=== PATIENT | female | born 1950 | race Caucasian/White ===

== ENCOUNTER → 2019-03-14 10:01 | Outpatient (CLI) | payer MEDICARE, SELFPAY ==
--- NOTE | 2019-03-14 10:06 | DI.RAD.S_ITS ---
PROCEDURE: XR LUMBAR SPINE 2-3V INDICATIONS: low back pain TECHNIQUE: 3 views of the lumbar spine were acquired. COMPARISON: None. FINDINGS: Bones: 5 [id number]-[id number] vertebrae are present. There is normal bony alignment. No vertebral body compression fractures. No suspicious bony lesions. Soft tissues: Overlying bowel gas pattern is normal. No suspicious soft tissue calcifications. IMPRESSION: Degenerative disc disease is mild to moderate in severity along the lumbosacral spine without subluxation. Facet osteoarthritis is minimal to the L4-5 level where is mild and moderate at L5-S1. Spinal and foraminal stenosis may be present at these 2 levels. Dictated by: Bakari Vegas M.D. on 03/14/2019 at 10:56 Approved by: Bakari Vegas M.D. on 03/14/2019 at 10:57
--- NOTE | 2019-03-14 10:06 | DI.RAD.S_ITS ---
PROCEDURE: XR SACRUM COCCYX MIN 2V INDICATIONS: low back pain TECHNIQUE: 3 views of the sacrum and coccyx acquired. COMPARISON: None. FINDINGS: Bones: No fractures or dislocations. No suspicious bony lesions. Soft tissues: Visualized bowel gas pattern is normal. No suspicious soft tissue densities. IMPRESSION: No trauma found. Source of low back pain involving the sacral region is not seen. Dictated by: Bakari Vegas M.D. on 03/14/2019 at 10:55 Approved by: Bakari Vegas M.D. on 03/14/2019 at 10:55
== END ==
PROVIDERS: PCP Physician Assistant; Visit Provider Physician Assistant
DX: M54.5 Low back pain (principal); M51.37 Other intervertebral disc degeneration, lumbosacral region; M47.817 Spondylosis without myelopathy or radiculopathy, lumbosacral region; G89.29 Other chronic pain
CPT/HCPCS: 72100; 72220

== ENCOUNTER → 2019-03-21 11:12 | Outpatient (CLI) | payer MEDICARE, SELFPAY ==
--- NOTE | 2019-03-21 | DI.MG.S_ITS ---
BILATERAL DIGITAL SCREENING MAMMOGRAM 3D/2D WITH CAD: 03/21/2019 CLINICAL: Routine screening. Baseline exam. No prior exams were available for comparison. There are scattered fibroglandular elements in both breasts. Current study was also evaluated with a Computer Aided Detection (CAD) system. There is an irregular equal density global asymmetry with an indistinct margin and segmental fine punctate calcifications in the right breast at 11 o'clock anterior depth. No other significant masses, calcifications, or other findings are seen in either breast. IMPRESSION: INCOMPLETE: NEEDS ADDITIONAL IMAGING EVALUATION The irregular equal density global asymmetry in the right breast is indeterminate. Mediolateral and spot magnification views as well as additional views with possible ultrasound are recommended. This exam was interpreted at Station ID: [id number]. NOTE: For mammograms, a report in lay terms will be sent to the patient. Approximately 15% of breast malignancies will not be visualized mammographically. In the management of a palpable breast mass, a negative mammogram must not discourage biopsy of a clinically suspicious lesion. Electronically Signed By: Jeffrey travis/karla:03/21/2019 16:36:12 letter sent: Additional Imaging Needed ACR BI-RADS Category 0: Incomplete 3340F
== END ==
PROVIDERS: PCP Physician Assistant; Visit Provider Physician Assistant
DX: Z12.31 Encounter for screening mammogram for malignant neoplasm of breast (principal)
CPT/HCPCS: 77063; 77067

== ENCOUNTER → 2019-04-04 17:03 | Outpatient (CLI) | payer MEDICARE, SELFPAY ==
--- NOTE | 2019-04-04 | DI.MRI.S_ITS ---
PROCEDURE: MR LUMBAR SPINE WO CON INDICATIONS: Lower back pain TECHNIQUE: Noncontrast sagittal T1 spin echo and T2 fast echo, sagittal STIR, axial T1 and T2 fast spin echo through the lumbar spine. In cases with scoliosis, additional coronal T2 fast spin echo may be performed. COMPARISON: [facility], CR, XR LUMBAR SPINE 2-3V, 03/14/2019, 10:21. [facility], CR, XR SACRUM COCCYX MIN 2V, 03/14/2019, 10:21. FINDINGS: Image quality: Diagnostic Alignment and Curvature: There is overall straightening of the normal lumbar lordosis. Bone Marrow: Marrow is of normal overall signal. No acute vertebral body compression fractures. Spinal Cord: Conus medullaris terminates at the L1-L2 level. Visualized cord demonstrates normal signal and size. Paraspinous Soft Tissues: No paravertebral masses. T12-L1: Normal appearance. L1-L2: Mild to moderate loss of disc height and disc signal are seen. No neural foraminal or central canal narrowing can be seen. L2-L3: Mild to moderate loss of disc height and disc signal can be seen. Mild generalized disc bulge is seen. There is mild to moderate left-sided and no right-sided neural foraminal narrowing seen. No significant central canal narrowing is seen. L3-L4: Mild to moderate loss of disc height and disc signal can be seen at this level. Mild to moderate disc bulge is seen. Yqdf-wj-wnhvutmv facet hypertrophy is seen. There is mild to moderate right-sided and no left-sided neural foraminal narrowing seen. Mild central canal narrowing is seen. L4-L5: Moderate loss of disc height is seen. Loss of disc signal is seen. Reactive marrow endplate changes are seen, which are hyperintense on T1-weighted and T2-weighted imaging and most consistent with fatty metaplasia (Modic type II changes). Moderate disc bulge is seen, which is eccentric to the right. There is a central disc protrusion seen. Rbqr-fm-puqrjvfs facet hypertrophy is seen. There is moderate right-sided and mild to moderate left-sided neural foraminal narrowing seen at this level. Mild to moderate central canal narrowing is seen. L5-S1: Mild loss of disc height is seen. Loss of disc signal is seen. Mild generalized disc bulge is seen. Mild bilateral neural foraminal narrowing is seen. No significant central canal narrowing is seen. IMPRESSION: Multiple levels of lumbar spine degenerative change are seen, which are overall most prominent at L4-L5. Dictated by: Rodo Tavarez M.D. on 04/04/2019 at 16:58 Approved by: Rodo Tavarez M.D. on 04/04/2019 at 17:02
== END ==
PROVIDERS: PCP Physician Assistant; Visit Provider Orthopaedic Surgery Orthopaedic Surgery of the Spine
DX: M54.5 Low back pain (principal); M47.816 Spondylosis without myelopathy or radiculopathy, lumbar region
CPT/HCPCS: 72148

== ENCOUNTER → 2019-04-06 13:11 | Outpatient (CLI) | payer MEDICARE, SELFPAY ==
--- NOTE | 2019-04-06 | DI.MG.S_ITS ---
UNILATERAL RIGHT DIGITAL DIAGNOSTIC MAMMOGRAM 3D/2D WITH ADDITIONAL VIEWS: 04/06/2019 CLINICAL: Patient returns today to evaluate an architectural distortion in the right breast. Comparison is made to exam dated: 03/21/2019 [facility]. There are scattered fibroglandular elements in right breast. There is an irregular equal density global asymmetry with an indistinct margin and segmental fine punctate calcifications in the right breast at 11 o'clock anterior depth. This is seen in additional views. No other significant masses or calcifications are seen in the breast. IMPRESSION: INCOMPLETE: NEEDS ADDITIONAL IMAGING EVALUATION The irregular equal density global asymmetry in the right breast is indeterminate. A targeted ultrasound of the right breast is recommended and will be performed immediately following this exam. This exam was interpreted at Station ID: [id number]. NOTE: For mammograms, a report in lay terms will be sent to the patient. Approximately 15% of breast malignancies will not be visualized mammographically. In the management of a palpable breast mass, a negative mammogram must not discourage biopsy of a clinically suspicious lesion. Electronically Signed By: Thuy Obrien M.D. lk/:04/06/2019 14:47:18 ACR BI-RADS Category 0: Incomplete 3340F
--- NOTE | 2019-04-06 13:12 | DI.US.S_ITS ---
ULTRASOUND OF RIGHT BREAST: 04/06/2019 CLINICAL: Patient returns today to evaluate an architectural distortion in the right breast. Comparison is made to exams dated: 04/06/2019 mammogram and 03/21/2019 mammogram - [facility]. Color flow ultrasound of the right breast was performed on the areas of interest. [place] scale images of the real-time examination were reviewed. IMPRESSION: SUSPICIOUS OF MALIGNANCY There is no discrete sonographic abnormality seen in the right breast to correspond with the global asymmetry and calcifications in the upper outer quadrant, however, stereo tactic biopsy is recommended. Additionally, given the extent of the calcifications, an anterior and a posterior depth biopsy is recommended. This was discussed with the patient by Dr. Moncada at the time of the study. This exam was interpreted at Station ID: [id number]. Electronically Signed By: Thuy Obrien M.D. lk/:04/06/2019 17:51:47 letter sent: Biopsy Required Ultrasound BI-RADS: 4b Suspicious abnormality - intermediate suspicion of malignancy
== END ==
PROVIDERS: PCP Physician Assistant; Visit Provider Physician Assistant
DX: R92.8 Other abnormal and inconclusive findings on diagnostic imaging of breast (principal); R92.1 Mammographic calcification found on diagnostic imaging of breast; N64.89 Other specified disorders of breast
CPT/HCPCS: 76642; 77065; G0279

== ENCOUNTER → 2020-04-30 12:00 | Outpatient (CLI) | payer OTHER, SELFPAY ==
--- NOTE | 2020-04-30 12:02 | DI.MG.S_ITS ---
BILATERAL DIGITAL SCREENING MAMMOGRAM 3D/2D WITH CAD POST LUMPECTOMY: 04/30/2020 CLINICAL: Routine screening. Breast cancer. Comparison is made to exams dated: 04/06/2019 mammogram, 03/21/2019 mammogram - [facility], 04/25/2019 stereotactic biopsy, 04/25/2019 stereotactic biopsy - [facility], and 04/06/2019 ultrasound - [facility]. There are scattered fibroglandular elements in both breasts. Current study was also evaluated with a Computer Aided Detection (CAD) system. There is an oval focal asymmetry in the right breast at 10 o'clock middle depth. This is more prominent. There also are 6.8 cm x 4.6 cm regional fine and pleomorphic calcifications in the right breast at 11 o'clock anterior depth. Two biopsy clips within this region of calcifications. Overall the extent and quantity of calcifications is not significantly changed compared to mammogram 03/21/2019. No mass was identified on prior targeted ultrasound. No other significant masses, calcifications, or other findings are seen in either breast. IMPRESSION: INCOMPLETE: NEEDS ADDITIONAL IMAGING EVALUATION 1) The oval focal asymmetry in the right breast at 10 o'clock middle depth is indeterminate. -Additional views with possible ultrasound are recommended. 2) The 6.8 cm x 4.6 cm regional fine and pleomorphic calcifications in the right breast at 11 o'clock region are consistent with known biopsy positive malignant DCIS. -Recommend continued surgical/oncologic management. -A breast MRI for further evaluation would be helpful to define the extent of disease and monitor response to treatments. This exam was interpreted at Station ID: [id number]. NOTE: For mammograms, a report in lay terms will be sent to the patient. Approximately 15% of breast malignancies will not be visualized mammographically. In the management of a palpable breast mass, a negative mammogram must not discourage biopsy of a clinically suspicious lesion. Electronically Signed By: Navin Markham M.D. [facility]/:04/30/2020 17:20:42 letter sent: Additional Imaging Needed ACR BI-RADS Category 0: Incomplete 3340F
== END ==
PROVIDERS: PCP Nurse Practitioner; Referring Provider Nurse Practitioner; Visit Provider Nurse Practitioner
DX: Z12.31 Encounter for screening mammogram for malignant neoplasm of breast (principal); D05.11 Intraductal carcinoma in situ of right breast
CPT/HCPCS: 77063; 77067

== ENCOUNTER → 2020-05-25 13:16 | Outpatient (CLI) | payer MEDICARE, SELFPAY ==
--- NOTE | 2020-05-25 13:37 | DI.MRI.S_ITS ---
Patient Name: KARIE HERNANDEZ date: 1950 Sex: F Attending Physician: Tian Indications: Date: 05/25/2020 13:23 At the request of: MARCELINA LAMB Procedure: MM special view RT UNILATERAL RIGHT DIGITAL DIAGNOSTIC MAMMOGRAM 3D/2D WITH ADDITIONAL VIEWS: 05/25/2020 CLINICAL: Additional evaluation requested from prior study. Comparison is made to exams dated: 04/30/2020 mammogram, 04/06/2019 mammogram, and 03/21/2019 mammogram - [facility]. The tissue of right breast is heterogeneously dense. This may lower the sensitivity of mammography. There is a 0.9 cm oval equal density mass with an indistinct margin in the right breast at 11 o'clock middle depth. There is architectural distortion associated with the mass. There also are segmental fine pleomorphic calcifications in the right breast at 11 o'clock anterior depth. These are not significantly changed. No other significant masses or calcifications are seen in the breast. IMPRESSION: INCOMPLETE: NEEDS ADDITIONAL IMAGING EVALUATION The 0.9 cm oval equal density mass in the right breast at 11 o'clock middle depth is indeterminate. An ultrasound is recommended. The segmental fine pleomorphic calcifications in the right breast at 11 o'clock anterior depth are consistent with known biopsy proven DCIS. Clinical management again recommended. This exam was interpreted at Station ID: [id number]. NOTE: For mammograms, a report in lay terms will be sent to the patient. Approximately 15% of breast malignancies will not be visualized mammographically. In the management of a palpable breast mass, a negative mammogram must not discourage biopsy of a clinically suspicious lesion. Electronically Signed By: Jeffrey Storey M.D. [email or web address]/:05/25/2020 13:58:49 Continued Report - Page 2 of 2 Patient Name: KARIE HERNANDEZ date: 1950 Sex: F Attending Physician: Tian Indications: Date: 05/25/2020 13:23 At the request of: MARCELINA LAMB Procedure: MM special view RT
--- NOTE | 2020-05-25 14:46 | DI.US.S_ITS ---
Patient Name: KARIE HERNANDEZ date: 1950 Sex: F Attending Physician: Tian Indications: Date: 05/25/2020 14:46 At the request of: MARCELINA LAMB Procedure: US breast RT limited LIMITED ULTRASOUND OF RIGHT BREAST: 05/25/2020 CLINICAL: Patient returns today to evaluate asymmetry in the right breast. Comparison is made to exams dated: 05/25/2020 mammogram, 04/30/2020 mammogram, 04/06/2019 ultrasound, 04/06/2019 mammogram, and 03/21/2019 mammogram - Located [facility]. Color flow and real-time ultrasound of the right breast upper outer quadrant were performed on the areas of interest. There are multiple oval cysts in the right breast superior lateral quadrant middle depth. These oval cysts are hypoechoic with posterior acoustic enhancement witih the largest measuring up to 0.5 cm x 0.4 cm x 0.4 cm. These abnormalities are not significantly changed. Color flow imaging demonstrates that there is no vascularity present. IMPRESSION: KNOWN BIOPSY PROVEN MALIGNANCY The multiple oval cysts in the right breast are benign. There is no solid mass seen in the right breast to correspond with the mammography finding in the upper outer quadrant. Given patient's history of biopsy proven DCIS in the upper outer quadrant of the right breast corresponding to calcifications seen on mammography, consider further evaluation with an MRI to evaluate for extent of disease. This exam was interpreted at Station ID: [id number]. Electronically Signed By: Jeffrey Storey M.D. ddp/:05/25/2020 15:08:56 letter sent: Clinical Evaluation Continued Report - Page 2 of 2 Patient Name: KARIE HERNANDEZ date: 1950 Sex: F Attending Physician: Tian Indications: Date: 05/25/2020 14:46 At the request of: MARCELINA LAMB Procedure: US breast RT limited Ultrasound BI-RADS: 6 Known biopsy proven malignancy
== END ==
PROVIDERS: PCP Nurse Practitioner; Referring Provider Nurse Practitioner; Visit Provider Nurse Practitioner
DX: R92.8 Other abnormal and inconclusive findings on diagnostic imaging of breast (principal); D05.11 Intraductal carcinoma in situ of right breast; N60.01 Solitary cyst of right breast
CPT/HCPCS: 76642; 77065; G0279